=== PATIENT | male | born 1945 | race Hispanic/Latino ===

== ENCOUNTER 2019-12-31 21:01 | Emergency (ER) | payer OTHER ==
[~2019-12-31 21:01] MED LIST: ATOR40TA71 PO; BENZ-51 PO; CAPT50TA3 PO; ESCI10TA54 PO; FISH OIL/OMEGA PO; FLUT16H NASAL; LORA10TA7 PO; LOSA50TA64 PO; METO-391 PO; MULT-1285 PO; PRAV20TA4 PO; RIVA20TA PO
== END 2019-12-31 22:51 | disposition home or self-care (01) ==
LOC: EDH 21:01
DX: S02.2XXA Fracture of nasal bones, initial encounter for closed fracture (principal); S80.212A Abrasion, left knee, initial encounter; S80.211A Abrasion, right knee, initial encounter; S00.81XA Abrasion of other part of head, initial encounter; E78.5 Hyperlipidemia, unspecified; I10 Essential (primary) hypertension; Z88.2 Allergy status to sulfonamides; Z87.891 Personal history of nicotine dependence; W18.39XA Other fall on same level, initial encounter; Y93.01 Activity, walking, marching and hiking; Y92.89 Other specified places as the place of occurrence of the external cause; Y99.8 Other external cause status
CPT/HCPCS: 70450; 70486

== ENCOUNTER 2020-09-02 05:54 | Day surgery (SDC) | payer OTHER ==
[2020-09-01 09:45] LABS: BASOPHILS % (AUTO) 0.6 % (0.0-5.0); EOSINOPHILS % (AUTO) 3.2 % (0.0-8.0); HEMATOCRIT 40.3 % (42-54); LYMPHOCYTES % (AUTO) 31.7 % (21.0-51.0); MEAN CORPUSCULAR HEMOGLOBIN 32.9 pg (27.0-33.0); MEAN CORPUSCULAR HGB CONC 34.5 g/dL (32.0-36.0); MEAN CORPUSCULAR VOLUME 95.5 fL (79-99); MONOCYTES % (AUTO) 10.2 % (3.0-13.0); PLATELET COUNT (AUTO) 251 K/uL (130-400); RED BLOOD CELL COUNT(AUTO) 4.22 MIL/uL (4.50-6.20); RED CELL DISTRIBUTION WIDTH 14.2 % (11.0-15.5); WHITE BLOOD COUNT (AUTO) 6.7 K/uL (4.8-10.8)
[2020-09-01 09:51] LABS: APPEARANCE,URINE Clear (CLEAR); BILIRUBIN,URINE Negative (NEGATIVE); COLOR,URINE Dark Yellow (YELLOW); GLUCOSE, URINE (UA) Negative (NEGATIVE); KETONES,URINE Negative (NEGATIVE); LEUKOCYTE ESTERASE ,URINE Negative (NEGATIVE); NITRATE,URINE Negative (NEGATIVE); OCCULT BLOOD,URINE Moderate (NEGATIVE); PROTEIN,URINE Trace mg/dL (NEGATIVE); UROBILINOGEN,URINE 0.2 mg/dL (0.2-1.0)
[2020-09-01 09:55] LABS: CREATININE 1.2 mg/dL (0.5-1.5); POTASSIUM 4.5 mmol/L (3.5-5.1)
[2020-09-01 09:56] LABS: INR 1.02 (0.85-1.15); PROTHROMBIN TIME 10.9 SEC (9.6-11.6)
[2020-09-01 09:58] LABS: PARTIAL THROMBOPLASTIN TIME 23.8 SEC (26.3-35.5)
[2020-09-01 10:00] LABS: BACTERIA,URINE Rare /HPF (None Seen); RBC,URINE 0-1 /HPF (0-1); SQUAMOUS EPITHELIAL CELL,UR Rare /HPF (0-2); WBC,URINE 0-1 /HPF (0-1)
[2020-09-01 10:36] VITALS: BP 136/70
[~2020-09-02] VITALS: Ht 172.7 cm; Wt 74.5 kg
[2020-09-02] VITALS (11 sets, daily range): BP systolic 107–149; BP diastolic 60–74
[~2020-09-02 05:54] MED LIST changes: +ALPR0.255 PO; +AMLO-258 PO; +ASPI-1197 PO; +ATOR20TA65 PO; -ATOR40TA71 PO; -BENZ-51 PO; -CAPT50TA3 PO; +CILO100T PO; +CYAN-35 PO; -ESCI10TA54 PO; +FERR-82 PO; -FLUT16H NASAL; +LEVO5TAB13 PO; -LORA10TA7 PO; -LOSA50TA64 PO; -METO-391 PO; +POTA99TA21 PO; -PRAV20TA4 PO; -RIVA20TA PO
[2020-09-02] MEDS ORDERED: SODIUM CHLORIDE 0.9% 1000ML 1,000 ML IV ONE (06:37)
[2020-09-02] MEDS ORDERED: FISH OIL PO (07:16)
[2020-09-02] MEDS ORDERED: HEPARIN SODIUM 1000UNIT/ML 10ML VIAL ONE (09:25)
[2020-09-02] MEDS ORDERED: NICARDIPINE HCL 25 MG/10 ML ML IV ONE (09:26)
[2020-09-02] MEDS ORDERED: IODIXANOL 320 MG/ML 100 ML VIAL ONE (09:26)
[2020-09-02] MEDS ORDERED: MIDAZOLAM HCL 1 MG/ML 2ML VIAL ONE (09:26)
[2020-09-02] MEDS ORDERED: NITROGLYCERIN 2 MG/VIAL VIAL IV ONE (09:26)
[2020-09-02] MEDS ORDERED: FENTANYL CITRATE PF 50 MCG/1 ML 2ML VIAL ONE (09:26)
[2020-09-02] MEDS ORDERED: LIDOCAINE HCL 2% 20ML ONE (09:27)
== END 2020-09-02 15:15 | disposition home or self-care (01) ==
LOC: DAH 05:54
PROVIDERS: ATTEND Internal Medicine Cardiovascular Disease
DX: I70.213 Atherosclerosis of native arteries of extremities with intermittent claudication, bilateral legs (principal); I10 Essential (primary) hypertension; D50.9 Iron deficiency anemia, unspecified; Z87.891 Personal history of nicotine dependence; Z98.890 Other specified postprocedural states; Z79.899 Other long term (current) drug therapy; Z82.49 Family history of ischemic heart disease and other diseases of the circulatory system; Z88.2 Allergy status to sulfonamides; Z79.01 Long term (current) use of anticoagulants; Z79.82 Long term (current) use of aspirin
CPT/HCPCS: 36246; 36415; 71045; 75716; 80048; 81001; 85025; 85610; 85730; 93005; A4215; A4216; A4221; A4222; A4223 ×3; A4606; A4663; C1760; C1769; C1894 ×2; J1644; J2250; J3010; J3490 ×2; J7030; Q9967; 99156; 99157

== ENCOUNTER → 2022-04-01 | Outpatient (CLI) | payer OTHER ==
[~2022-04-01] MED LIST changes: -CILO100T PO; +FISH OIL PO; -FISH OIL/OMEGA PO; -POTA99TA21 PO; +POTA99TA26 PO
== END | disposition home or self-care (01) ==
LOC: SHCH 10:33
PROVIDERS: ATTEND Internal Medicine Cardiovascular Disease
DX: I51.7 Cardiomegaly (principal); R01.1 Cardiac murmur, unspecified
CPT/HCPCS: 93306

== ENCOUNTER 2023-10-14 17:51 | Emergency (ER) | payer OTHER ==
[~2023-10-14] VITALS: Ht 170.2 cm; Wt 77.1 kg
[2023-10-14 19:52] VITALS: BP 126/80; PULSE 60; RESP 19; O2SAT 100
[2023-10-14] MEDS ORDERED: EPIN0.3P3 IJ (20:32)
[2023-10-14] MEDS ORDERED: CETI10CA5 PO (20:32)
== END 2023-10-14 20:38 | disposition home or self-care (01) ==
LOC: EDH 17:51
DX: T78.49XA Other allergy, initial encounter (principal); I10 Essential (primary) hypertension; E78.00 Pure hypercholesterolemia, unspecified; Z79.82 Long term (current) use of aspirin; Z79.899 Other long term (current) drug therapy; Z88.2 Allergy status to sulfonamides; X58.XXXA Exposure to other specified factors, initial encounter
CPT/HCPCS: 99282